=== PATIENT | male | born 1990 | race Caucasian/White ===

== ENCOUNTER 2019-04-13 19:48 | Inpatient (IN) ==
[2019-04-13 20:42] LABS: Basophils # 0.1 10*3/uL (0.0-0.2); Basophils % 0.6 % (0.0-0.8); Eosinophils # 0.2 10*3/uL (0.0-0.87); Eosinophils % 2.1 % (0.00-10.9); Hematocrit 41.6 VOL% (42.0-52.0); Hemoglobin 14.2 GM/DL (14.0-18.0); Immature Granulocytes % 0.2 %; Immature Granulocytes Absolute 0.02 #; Lymphocytes # 2.4 10*3/uL (1.4-4.0); Lymphocytes % 27.8 % (21.2-54.2); Mean Corpuscular HGB Conc 34.1 GM/DL (32-36); Mean Corpuscular Volume 86.8 FL (87-102); Mean Platelet Volume 9.7 FL (9.6-12.0); Monocytes % 11.5 % (1.7-12.7); Neutrophils % 57.8 % (38.7-73.9); Platelet Count 174 T/CUMM (130-400); Red Blood Count 4.79 MC/CUMM (3.8-5.5); Red Cell Distribution Width 12.6 % (9.3-17.3); White Blood Count 8.7 T/CUMM (4-12)
[2019-04-13 21:02] LABS: Albumin 4.1 G/DL (3.4-5.0); Bilirubin,Total 0.4 MG/DL (0.2-1.0); Osmolality,Calculated 274.7 MOS/KG (273-304); Total Protein 7.3 G/DL (6.4-8.3)
[2019-04-13] MEDS ORDERED: ONDANSETRON 4 MG/2 ML VIAL IV STA (21:59)
[2019-04-13] MEDS ORDERED: PANTOPRAZOLE 40 MG VIAL IV STA (21:59)
[2019-04-13 22:13] LABS: INR 1.1; PT Patient Result 11.6 SECS (9.6-12.2)
[2019-04-13] MEDS ORDERED: CIPROFLOXACIN INJ 400 MG in PREMIX 1 EACH IV STA (23:25)
[2019-04-13] MEDS ORDERED: SODIUM CHLORIDE 0.9% 1,000 ML IV STA (23:25)
[2019-04-14] MEDS ORDERED: ACETAMINOPHEN 325 MG TABLET PO PRN (00:44)
[2019-04-14] MEDS: metroNIDAZOLE INJ 500 MG in PREMIX 1 EACH IV SCH ×3 (01:18→16:44)
[2019-04-14] MEDS: SODIUM CHLORIDE 0.9% 1,000 ML IV SCH ×3 (01:25→17:16)
[2019-04-14] MEDS: HYDROmorphone 2 MG/1 ML VIAL IV PRN ×4 (01:29→23:11)
[2019-04-14 05:27] LABS: Basophils # 0.1 10*3/uL (0.0-0.2); Basophils % 0.5 % (0.0-0.8); Eosinophils # 0.2 10*3/uL (0.0-0.87); Hematocrit 39.6 VOL% (42.0-52.0); Hemoglobin 13.8 GM/DL (14.0-18.0); Immature Granulocytes % 0.3 %; Immature Granulocytes Absolute 0.03 #; Lymphocytes # 2.3 10*3/uL (1.4-4.0); Lymphocytes % 23.8 % (21.2-54.2); Mean Corpuscular HGB Conc 34.8 GM/DL (32-36); Mean Corpuscular Volume 86.8 FL (87-102); Mean Platelet Volume 9.6 FL (9.6-12.0); Monocytes % 10.3 % (1.7-12.7); Neutrophils % 63.1 % (38.7-73.9); Platelet Count 166 T/CUMM (130-400); Red Blood Count 4.56 MC/CUMM (3.8-5.5); Red Cell Distribution Width 12.6 % (9.3-17.3); White Blood Count 9.8 T/CUMM (4-12)
[2019-04-14 05:55] LABS: Albumin 3.6 G/DL (3.4-5.0); Bilirubin,Total 0.8 MG/DL (0.2-1.0); Calcium 8.4 MG/DL (8.5-10.1); Total Protein 6.4 G/DL (6.4-8.3)
[2019-04-14] MEDS ORDERED: PANTOPRAZOLE 40 MG VIAL IV SCH (09:00)
[2019-04-14] MEDS ORDERED: PROPOFOL 200 MG/20 ML VIAL IV ONE (09:00)
[2019-04-14] MEDS ORDERED: LIDOCAINE 2% 5 ML VIAL ONE (09:00)
[2019-04-14 11:38] LABS: Hematocrit 42.7 VOL% (42.0-52.0); Hemoglobin 14.5 GM/DL (14.0-18.0)
[2019-04-14] MEDS ORDERED: LACTATED RINGERS 1,000 ML IV SCH (12:00)
[2019-04-14] MEDS: ONDANSETRON 4 MG/2 ML VIAL IV PRN (12:07)
[2019-04-14] MEDS: traMADol 50 MG TABLET PO PRN ×2 (12:08→21:20)
[2019-04-14] MEDS ORDERED: SODIUM PHOSPHATE ENEMA 133 ML BOTTLE RECTAL ONE ×2 (12:08→12:10)
[2019-04-14] MEDS: CIPROFLOXACIN INJ 400 MG in PREMIX 1 EACH IV SCH ×2 (14:11→23:10)
[2019-04-14] MEDS: DOCUSATE SODIUM 100 MG CAPSULE PO SCH ×2 (14:23→21:21)
[2019-04-14] MEDS: methylPREDNISolone SOD SUC 40 MG/1 ML VIAL IV SCH (14:24)
[2019-04-14] MEDS: PANTOPRAZOLE 40 MG TABLET PO SCH ×2 (14:24→21:21)
[2019-04-14] MEDS: CITALOPRAM 20 MG TABLET PO SCH (15:07)
[2019-04-14 19:19] LABS: Hematocrit 40.9 VOL% (42.0-52.0); Hemoglobin 13.9 GM/DL (14.0-18.0)
[2019-04-15] MEDS: metroNIDAZOLE INJ 500 MG in PREMIX 1 EACH IV SCH ×3 (01:11→16:18)
[2019-04-15] MEDS: methylPREDNISolone SOD SUC 40 MG/1 ML VIAL IV SCH ×2 (02:51→14:32)
[2019-04-15] MEDS: SODIUM CHLORIDE 0.9% 1,000 ML IV SCH ×3 (02:55→22:20)
[2019-04-15] MEDS: ONDANSETRON 4 MG/2 ML VIAL IV PRN ×4 (02:57→22:27)
[2019-04-15 05:45] LABS: Hematocrit 41.3 VOL% (42.0-52.0); Hemoglobin 13.9 GM/DL (14.0-18.0)
[2019-04-15 05:47] LABS: Basophils % 0.1 % (0.0-0.8); Hematocrit 41.7 VOL% (42.0-52.0); Hemoglobin 14.1 GM/DL (14.0-18.0); Immature Granulocytes % 0.4 %; Immature Granulocytes Absolute 0.05 #; Lymphocytes # 0.7 10*3/uL (1.4-4.0); Lymphocytes % 4.6 % (21.2-54.2); Mean Corpuscular HGB Conc 33.8 GM/DL (32-36); Mean Corpuscular Volume 87.4 FL (87-102); Mean Platelet Volume 10.1 FL (9.6-12.0); Monocytes % 1.5 % (1.7-12.7); Neutrophils % 93.4 % (38.7-73.9); Platelet Count 181 T/CUMM (130-400); Red Blood Count 4.77 MC/CUMM (3.8-5.5); Red Cell Distribution Width 12.3 % (9.3-17.3)
[2019-04-15 06:07] LABS: Albumin 3.7 G/DL (3.4-5.0); Bilirubin,Total 0.7 MG/DL (0.2-1.0); Calcium 8.9 MG/DL (8.5-10.1); Osmolality,Calculated 276.5 MOS/KG (273-304); Total Protein 6.9 G/DL (6.4-8.3)
[2019-04-15 06:12] LABS: Lymphocytes 4 % (20-55); Segmented Neutrophils 95 % (50-85); Total Cells Counted 100
[2019-04-15 06:13] LABS: Platelet Estimate Adequate; Polychromasia Slight
[2019-04-15] MEDS: PANTOPRAZOLE 40 MG TABLET PO SCH ×2 (09:27→20:54)
[2019-04-15] MEDS: CITALOPRAM 20 MG TABLET PO SCH (09:27)
[2019-04-15] MEDS: DOCUSATE SODIUM 100 MG CAPSULE PO SCH ×2 (09:27→20:54)
[2019-04-15] MEDS: CIPROFLOXACIN INJ 400 MG in PREMIX 1 EACH IV SCH ×2 (11:57→22:22)
[2019-04-15 13:16] LABS: Hematocrit 37.8 VOL% (42.0-52.0)
[2019-04-15 14:21] LABS: Hepatitis B Core IgM Quant < 0.05 Index; Hepatitis B Surface Ag Quant < 0.10 Index; Hepatitis B Surface Ag Result Negative (Negative); Hepatitis C Virus Ab Result Negative (Negative)
[2019-04-15 19:44] LABS: Hematocrit 39.3 VOL% (42.0-52.0); Hemoglobin 13.3 GM/DL (14.0-18.0)
[2019-04-16] MEDS: metroNIDAZOLE INJ 500 MG in PREMIX 1 EACH IV SCH ×3 (02:57→15:50)
[2019-04-16] MEDS: methylPREDNISolone SOD SUC 40 MG/1 ML VIAL IV SCH ×2 (02:58→15:45)
[2019-04-16] MEDS: SODIUM CHLORIDE 0.9% 1,000 ML IV SCH ×4 (03:05→22:02)
[2019-04-16 05:14] LABS: Basophils % 0.1 % (0.0-0.8); Hematocrit 40.3 VOL% (42.0-52.0); Hemoglobin 13.8 GM/DL (14.0-18.0); Immature Granulocytes % 0.5 %; Immature Granulocytes Absolute 0.11 #; Lymphocytes # 1.7 10*3/uL (1.4-4.0); Lymphocytes % 8.3 % (21.2-54.2); Mean Corpuscular HGB Conc 34.2 GM/DL (32-36); Mean Corpuscular Volume 87.4 FL (87-102); Mean Platelet Volume 10.9 FL (9.6-12.0); Monocytes % 6.3 % (1.7-12.7); Neutrophils % 84.8 % (38.7-73.9); Platelet Count 203 T/CUMM (130-400); Red Blood Count 4.61 MC/CUMM (3.8-5.5); Red Cell Distribution Width 12.5 % (9.3-17.3); White Blood Count 20.9 T/CUMM (4-12)
[2019-04-16 05:40] LABS: Albumin 3.9 G/DL (3.4-5.0); Bilirubin,Total 0.5 MG/DL (0.2-1.0); Osmolality,Calculated 281.3 MOS/KG (273-304)
[2019-04-16 06:30] LABS: Lymphocytes 6 % (20-55); Platelet Estimate Adequate; Polychromasia Few; Segmented Neutrophils 90 % (50-85); Total Cells Counted 100
[2019-04-16] MEDS: DOCUSATE SODIUM 100 MG CAPSULE PO SCH ×2 (08:27→20:54)
[2019-04-16] MEDS: CITALOPRAM 20 MG TABLET PO SCH (08:27)
[2019-04-16] MEDS: PANTOPRAZOLE 40 MG TABLET PO SCH ×2 (08:27→20:54)
[2019-04-16] MEDS: ONDANSETRON 4 MG/2 ML VIAL IV PRN (11:19)
[2019-04-16] MEDS: CIPROFLOXACIN INJ 400 MG in PREMIX 1 EACH IV SCH ×2 (11:22→22:04)
[2019-04-16 18:42] LABS: Hematocrit 37.7 VOL% (42.0-52.0); Hemoglobin 12.7 GM/DL (14.0-18.0)
[2019-04-17] MEDS: metroNIDAZOLE INJ 500 MG in PREMIX 1 EACH IV SCH ×2 (01:42→09:01)
[2019-04-17] MEDS: methylPREDNISolone SOD SUC 40 MG/1 ML VIAL IV SCH ×2 (01:45→15:17)
[2019-04-17] MEDS: SODIUM CHLORIDE 0.9% 1,000 ML IV SCH ×3 (04:39→19:02)
[2019-04-17 05:55] LABS: Basophils % 0.1 % (0.0-0.8); Hematocrit 39.4 VOL% (42.0-52.0); Hemoglobin 13.6 GM/DL (14.0-18.0); Immature Granulocytes % 0.7 %; Immature Granulocytes Absolute 0.11 #; Lymphocytes % 6.6 % (21.2-54.2); Mean Corpuscular HGB Conc 34.5 GM/DL (32-36); Mean Corpuscular Volume 87.2 FL (87-102); Mean Platelet Volume 10.3 FL (9.6-12.0); Monocytes % 2.6 % (1.7-12.7); Platelet Count 207 T/CUMM (130-400); Red Blood Count 4.52 MC/CUMM (3.8-5.5); Red Cell Distribution Width 12.5 % (9.3-17.3); White Blood Count 14.9 T/CUMM (4-12)
[2019-04-17 06:08] LABS: Albumin 3.6 G/DL (3.4-5.0); Bilirubin,Total 0.7 MG/DL (0.2-1.0); Calcium 8.7 MG/DL (8.5-10.1); Total Protein 6.6 G/DL (6.4-8.3)
[2019-04-17 06:19] LABS: Hypochromasia 1+; Platelet Estimate Adequate
[2019-04-17] MEDS: PANTOPRAZOLE 40 MG TABLET PO SCH ×2 (09:01→21:26)
[2019-04-17] MEDS: CITALOPRAM 20 MG TABLET PO SCH (09:01)
[2019-04-17] MEDS: DOCUSATE SODIUM 100 MG CAPSULE PO SCH ×2 (09:01→21:26)
[2019-04-17] MEDS: metroNIDAZOLE 500 MG TABLET PO SCH ×2 (15:55→21:26)
[2019-04-17] MEDS: CIPROFLOXACIN 500 MG TABLET PO SCH (21:26)
[2019-04-18 01:40] LABS: Hematocrit 38.2 VOL% (42.0-52.0)
[2019-04-18] MEDS: methylPREDNISolone SOD SUC 40 MG/1 ML VIAL IV SCH (02:05)
[2019-04-18 05:31] LABS: Basophils % 0.1 % (0.0-0.8); Hematocrit 39.1 VOL% (42.0-52.0); Hemoglobin 13.3 GM/DL (14.0-18.0); Immature Granulocytes % 0.7 %; Immature Granulocytes Absolute 0.08 #; Lymphocytes # 1.1 10*3/uL (1.4-4.0); Mean Corpuscular Volume 88.1 FL (87-102); Monocytes % 4.8 % (1.7-12.7); Neutrophils % 84.4 % (38.7-73.9); Platelet Count 193 T/CUMM (130-400); Red Blood Count 4.44 MC/CUMM (3.8-5.5); Red Cell Distribution Width 12.5 % (9.3-17.3); White Blood Count 11.4 T/CUMM (4-12)
[2019-04-18 06:10] LABS: Albumin 3.6 G/DL (3.4-5.0); Bilirubin,Total 1.2 MG/DL (0.2-1.0); Calcium 8.3 MG/DL (8.5-10.1); Osmolality,Calculated 289.7 MOS/KG (273-304); Total Protein 6.4 G/DL (6.4-8.3)
[2019-04-18] MEDS ORDERED: predniSONE 20 MG TABLET PO SCH (09:00)
[2019-04-18] MEDS: CITALOPRAM 20 MG TABLET PO SCH (10:03)
[2019-04-18] MEDS: CIPROFLOXACIN 500 MG TABLET PO SCH (10:03)
[2019-04-18] MEDS: metroNIDAZOLE 500 MG TABLET PO SCH (10:03)
[2019-04-18] MEDS: DOCUSATE SODIUM 100 MG CAPSULE PO SCH (10:04)
[2019-04-18] MEDS: PANTOPRAZOLE 40 MG TABLET PO SCH (10:04)
[2019-04-18] MEDS: SODIUM CHLORIDE 0.9% 1,000 ML IV SCH ×2 (10:07→12:02)
[2019-04-18 11:20] VITALS: BP 100/66
[2019-04-19 17:31] LABS: QuantiFERON-Tb Gold Pl Negative (Negative); TB2 Ag Minus Result -0.02 IU/mL
== END 2019-04-18 14:50 | disposition home or self-care (01) | DRG 386 ==
LOC: N.ED 19:48 → N.EDINP 19:48 → N.3E 04-14 02:13
PROVIDERS: ADMIT Family Medicine; ATTEND Family Medicine